=== PATIENT | female | born 1995 | race Caucasian/White ===

== ENCOUNTER 2017-06-26 19:31 | Emergency (ER) | payer OTHER ==
[~2017-06-26] VITALS: Ht 172.7 cm; Wt 142.9 kg
[2017-06-26] MEDS ORDERED: ONDANSETRON 4 MG/2 ML VIAL IM ONE (20:00)
[2017-06-26] MEDS ORDERED: HYDROMORPHONE 1 MG/1 ML DISP.SYRIN IM ONE ×2 (20:00→21:00)
--- NOTE | 2017-06-26 20:15 | NUR ---
pt aaox4, comes in c/o [facility] s/p dental work last week. pt able to speak in clear sentences and able to verbalize needs. pt in no sign of acute distress. family member at bedside
[2017-06-26] MEDS ORDERED: HYDROMORPHONE 1 MG/1 ML DISP.SYRIN ONE ×2 (20:24→21:14)
[2017-06-26] MEDS ORDERED: ONDANSETRON 4 MG/2 ML VIAL ONE (20:25)
--- NOTE | 2017-06-26 20:25 | NUR ---
pt brought down to CT via w/c by tech, consent for waiver signed and given to tech.
--- NOTE | 2017-06-26 20:45 | NUR ---
pt returned from CT via w/c, in bed with no acute distress.
--- NOTE | 2017-06-26 21:35 | NUR ---
Patient is resting comfortably in bed with eyes closed, mother at bed side.
--- NOTE | 2017-06-26 22:46 | NUR ---
Patient discharged to home in stable conditon. Written and verbal after care instructions given with RX. Patient verbalizes understanding of instructions. Pt walked out of ED with steady and stable gait, with mother
[2017-06-26 22:49] VITALS: BP 139/86
== END 2017-06-26 22:54 | disposition home or self-care (01) ==
LOC: ER 19:32
DX: J32.2 Chronic ethmoidal sinusitis (principal); R51 Headache; Z88.0 Allergy status to penicillin; F17.200 Nicotine dependence, unspecified, uncomplicated; Z86.010 Personal history of colon polyps
CPT/HCPCS: 70450; 70486; A4663; J1170; J2405

== ENCOUNTER 2017-07-13 22:25 | Emergency (ER) | payer OTHER ==
[~2017-07-13] VITALS: Ht 172.7 cm; Wt 149.7 kg
[2017-07-13] MEDS ORDERED: predniSONE 50 MG TABLET PO ONE (23:15)
[2017-07-13] MEDS ORDERED: DOXYCYCLINE HYCLATE 100 MG TABLET PO ONE (23:15)
--- NOTE | 2017-07-13 23:29 | NUR ---
Patient discharged to home in stable conditon. Written and verbal after care instructions given. Patient verbalizes understanding of instructions.
[2017-07-13 23:30] VITALS: BP 120/90
[2017-07-13] MEDS ORDERED: DOXYCYCLINE HYCLATE 100 MG TABLET ONE (23:35)
[2017-07-13] MEDS ORDERED: predniSONE 50 MG TABLET ONE (23:36)
== END 2017-07-13 23:22 | disposition home or self-care (01) ==
LOC: ER 22:26
DX: J32.9 Chronic sinusitis, unspecified (principal); Z88.0 Allergy status to penicillin; F17.200 Nicotine dependence, unspecified, uncomplicated
CPT/HCPCS: A4663; J7512

== ENCOUNTER 2017-07-23 16:53 | Emergency (ER) | payer OTHER ==
[~2017-07-23] VITALS: Ht 172.7 cm; Wt 151.5 kg
--- NOTE | 2017-07-23 17:37 | NUR ---
Patient left without being seen by ER physician.
== END 2017-07-23 17:38 | disposition left against medical advice (07) ==
LOC: ER 16:54
DX: Z53.21 Procedure and treatment not carried out due to patient leaving prior to being seen by health care provider (principal)
CPT/HCPCS: A4663

== ENCOUNTER 2017-09-05 19:58 | Emergency (ER) | payer OTHER ==
[~2017-09-05] VITALS: Ht 172.7 cm; Wt 147.4 kg
--- NOTE | 2017-09-05 22:02 | NUR ---
Patient discharged to home in stable conditon. Written and verbal after care instructions given. Patient verbalizes understanding of instructions.
== END 2017-09-05 22:02 | disposition home or self-care (01) ==
LOC: ER 20:03
DX: S93.402A Sprain of unspecified ligament of left ankle, initial encounter (principal); Z88.0 Allergy status to penicillin; W19.XXXA Unspecified fall, initial encounter; Y93.89 Activity, other specified; Y92.89 Other specified places as the place of occurrence of the external cause; Y99.8 Other external cause status
CPT/HCPCS: 73610; 73630; A4663

== ENCOUNTER 2017-10-07 03:19 | Emergency (ER) | payer OTHER ==
[~2017-10-07] VITALS: Ht 172.7 cm; Wt 149.7 kg
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
[2017-10-07] MEDS ORDERED: KETOROLAC TROMETHAMINE 30 MG INJ IM ONE (04:30)
[2017-10-07] MEDS ORDERED: OXYCODONE/APAP 5-325 MG TABLET PO ONE (04:30)
[2017-10-07] MEDS ORDERED: OXYCODONE/APAP 5-325 MG TABLET ONE (04:42)
[2017-10-07] MEDS ORDERED: KETOROLAC TROMETHAMINE 30 MG INJ ONE (04:42)
--- NOTE | 2017-10-07 04:55 | NUR ---
Patient discharged to home in stable conditon. Written and verbal after care instructions given. Patient verbalizes understanding of instructions. Pt took all personal belongings. Pt left accompanied by family member.
[2017-10-07 05:17] VITALS: BP 112/56
== END 2017-10-07 05:18 | disposition home or self-care (01) ==
LOC: ER 03:22
DX: J32.9 Chronic sinusitis, unspecified (principal); F17.210 Nicotine dependence, cigarettes, uncomplicated; Z88.0 Allergy status to penicillin
CPT/HCPCS: A4663; J1885

== ENCOUNTER 2018-03-24 19:16 | Emergency (ER) | payer OTHER ==
[~2018-03-24] VITALS: Ht 172.7 cm; Wt 145.6 kg
--- NOTE | 2018-03-24 19:42 | NUR ---
PT TO ER RM 1B AMBULATORY C/O PAIN ON BOTH LOWER EXTREMITIES, SEVERE ON R LEG RADIATING TO HER HIP SCALE10/10. DR LU WILL SEE PT.
[2018-03-24] MEDS ORDERED: HYDROMORPHONE 2 MG/1 ML DISP.SYRIN ONE (19:57)
[2018-03-24] MEDS ORDERED: ONDANSETRON 4 MG/2 ML VIAL ONE (19:58)
[2018-03-24] MEDS ORDERED: ONDANSETRON 4 MG/2 ML VIAL IM ONE (20:00)
[2018-03-24] MEDS: HYDROMORPHONE 1 MG/1 ML DISP.SYRIN IM ONE ×2 (20:02→20:05)
--- NOTE | 2018-03-24 20:33 | NUR ---
Patient discharged to home in stable conditon via wheelchair. Written and verbal after care instructions given to & to her mother. Patient verbalizes understanding of instructions.
[2018-03-24 20:35] VITALS: BP 130/80
== END 2018-03-24 20:36 | disposition home or self-care (01) ==
LOC: ER 19:17
DX: M25.561 Pain in right knee (principal); F17.200 Nicotine dependence, unspecified, uncomplicated; Z88.0 Allergy status to penicillin
CPT/HCPCS: 73564; 96372 ×2; 99284; J1170; J2405; A4663

== ENCOUNTER 2021-09-22 11:20 | Emergency (ER) | payer BC, OTHER ==
[~2021-09-22] VITALS: Ht 175.3 cm; Wt 140.6 kg
[2021-09-22] MEDS ORDERED: HYDROCODONE/APAP 5-325MG TABLET PO ONE (12:30)
[2021-09-22] MEDS ORDERED: CLINDAMYCIN HCL 150 MG CAPSULE PO ONE (12:30)
[2021-09-22] MEDS ORDERED: TDAP DIPH,PERTUSS,TET VAC/PF 0.5 ML DISP.SYRIN IM ONE ×2 (12:30→12:37)
[2021-09-22] MEDS ORDERED: CLINDAMYCIN HCL 300 MG CAPSULE ONE (12:36)
[2021-09-22] MEDS ORDERED: HYDROCODONE/APAP 5-325MG TABLET ONE (12:38)
[2021-09-22 12:54] LABS: HEMATOCRIT 33.2 % (31.2-41.9); MEAN CORPUSCULAR HEMOGLOBIN 26.1 uug (24.7-32.8); MEAN CORPUSCULAR VOLUME 76.7 fL (75.5-95.3); PLATELET COUNT (AUTO) 191 K/uL (179-408)
[2021-09-22 13:03] LABS: CARBON DIOXIDE 28 mmol/L (21-32); CHLORIDE 100 mmol/L (98-107); CREATININE 0.8 mg/dL (0.6-1.3); GLUCOSE 118 mg/dL (74-106); POTASSIUM 3.9 mmol/L (3.5-5.1); UREA NITROGEN, BLOOD 10 mg/dL (7-18)
[2021-09-22 13:16] LABS: ALANINE AMINOTRANSFERASE 37 U/L (14-59); ALKALINE PHOSPHATASE 105 U/L (50-136); ASPARTATE AMINOTRANSFERASE 19 U/L (15-37); BILIRUBIN,DIRECT 0.1 mg/dL (0.0-0.2); BILIRUBIN,TOTAL 0.3 mg/dL (0.2-1.0); TOTAL PROTEIN, SERUM 7.3 g/dL (6.4-8.2)
[2021-09-22] MEDS ORDERED: CLIN300C3 PO (15:00)
[2021-09-22] MEDS ORDERED: HYDR-3972 PO (15:00)
--- NOTE | 2021-09-22 15:29 | NUR ---
PT WAS EVALUATED BY DR CALLOWAY. PT WAS D/C'd TO HOME. D/C INSTRUCTIONS GIVEN TO THE PT BY DR CALLOWAY.
[2021-09-22 16:00] VITALS: BP 136/84
== END 2021-09-22 16:01 | disposition home or self-care (01) ==
LOC: ER 11:23
DX: L03.114 Cellulitis of left upper limb (principal); I87.2 Venous insufficiency (chronic) (peripheral); R60.0 Localized edema; Z88.0 Allergy status to penicillin; F17.200 Nicotine dependence, unspecified, uncomplicated
CPT/HCPCS: 36415; 83605; 84484; 85025; 85730; 87040; 90715; A4663

== ENCOUNTER 2022-07-05 07:25 | Inpatient (IN) | payer BC, MEDICAID ==
[~2022-07-05] VITALS: Ht 175.3 cm; Wt 140.6 kg
[~2022-07-05 07:25] MED LIST: CLIN300C3 PO; HYDR-3972 PO
[2022-07-05] MEDS ORDERED: MORPHINE SULFATE 2 MG/1 ML DISP.SYRIN IV ONE (08:00)
[2022-07-05] MEDS ORDERED: ONDANSETRON 4 MG/2 ML VIAL IV ONE (08:00)
[2022-07-05] MEDS ORDERED: ACETAMINOPHEN ES 500 MG TABLET PO ONE (08:00)
[2022-07-05] MEDS ORDERED: levoFLOXacin 750 MG/D5W 150 ML PIGGYBACK IV ONE (08:00)
[2022-07-05] MEDS ORDERED: IV NORMAL SALINE 1000 ML BAG IV ONE (08:00)
[2022-07-05] MEDS ORDERED: VANCOMYCIN IV 1,000 MG in IV DEXTROSE 5% 250 ML IV ONE (08:00)
--- NOTE | 2022-07-05 08:01 | NUR ---
"Plan to admit" per Dr Luis. ER registration/admitting staff [facility] notified.
--- NOTE | 2022-07-05 08:03 | NUR ---
U/S Clinked WAS NOTIFIED OF STUDY. SANA
[2022-07-05] MEDS ORDERED: ACETAMINOPHEN ES 500 MG TABLET ONE (08:11)
[2022-07-05] MEDS ORDERED: VANCOMYCIN IV 200 ML ONE (08:11)
[2022-07-05] MEDS ORDERED: ONDANSETRON 4 MG/2 ML VIAL ONE (08:11)
[2022-07-05] MEDS ORDERED: levoFLOXacin 750MG/D5W 150 ML IV ONE (08:12)
[2022-07-05] MEDS ORDERED: MORPHINE SULFATE 4 MG/1 ML DISP.SYRIN ONE (08:12)
[2022-07-05 08:14] LABS: MEAN CORPUSCULAR VOLUME 77.7 fL (75.5-95.3); PLATELET COUNT (AUTO) 145 K/uL (179-408)
[2022-07-05 08:38] LABS: CARBON DIOXIDE 25 mmol/L (21-32); CHLORIDE 99 mmol/L (98-107); CREATININE 1.1 mg/dL (0.6-1.3); GLUCOSE 131 mg/dL (74-106); POTASSIUM 3.4 mmol/L (3.5-5.1); UREA NITROGEN, BLOOD 9 mg/dL (7-18)
[2022-07-05 08:48] LABS: ALANINE AMINOTRANSFERASE 39 U/L (14-59); ALKALINE PHOSPHATASE 96 U/L (50-136); ASPARTATE AMINOTRANSFERASE 32 U/L (15-37); BILIRUBIN,DIRECT 0.2 mg/dL (0.0-0.2); BILIRUBIN,TOTAL 0.4 mg/dL (0.2-1.0); TOTAL PROTEIN, SERUM 7.9 g/dL (6.4-8.2)
[2022-07-05] MEDS ORDERED: LORAZEPAM 2 MG/1 ML VIAL IV ONE (11:00)
[2022-07-05] MEDS ORDERED: LORAZEPAM 2 MG/1 ML VIAL ONE (11:28)
--- NOTE | 2022-07-05 12:44 | NUR ---
2nd reminder to call back for report
--- NOTE | 2022-07-05 14:50 | NUR ---
27 year old female received from er via gurney to room 325 for sepsis.pt is aox4.call light with in reach .vs are stable md notified for the admission orders
[2022-07-05] MEDS ORDERED: ONDANSETRON 4 MG/2 ML VIAL IV PRN (15:00)
[2022-07-05] MEDS ORDERED: POTASSIUM CHLORIDE 10 MEQ TAB.PRT.SR PO ONE (15:00)
[2022-07-05] MEDS ORDERED: REMEDY ESSENTIAL ZINC PASTE 113 GM TP PRN (15:00)
[2022-07-05] MEDS ORDERED: HYDROCODONE/APAP 5-325MG TABLET PO PRN (15:00)
[2022-07-05] MEDS ORDERED: MAGNESIUM HYDROXIDE 30 ML LIQUID UDC PO PRN (15:00)
[2022-07-05 15:25] VITALS: BP 119/62
[2022-07-05] MEDS: ENOXAPARIN SODIUM 40 MG/0.4 ML DISP.SYRIN SQ SCH (15:27)
[2022-07-05] MEDS: IV NS 1000 ML 1,000 ML IV PRN (15:31)
[2022-07-05] MEDS: MORPHINE SULFATE 4 MG/1 ML DISP.SYRIN IV PRN ×2 (16:55→21:01)
--- NOTE | 2022-07-05 20:15 | NUR ---
Received patient in bed, AAO x 4. No SOB, not on any form of distress. IV access on RAC intact and patent with IVF infusing. Rt lower leg red and swollen, screaming d/t pain, elevated leg with pillow.
[2022-07-05] MEDS: VANCOMYCIN IV 2,000 MG in IV DEXTROSE 5% 500 ML IV SCH (20:26)
[2022-07-05] MEDS: DOXYCYCLINE HYCLATE 100 MG TABLET PO SCH (21:59)
[2022-07-06] MEDS: ACETAMINOPHEN 325 MG TABLET PO PRN ×2 (03:42→18:34)
[2022-07-06] MEDS: MORPHINE SULFATE 4 MG/1 ML DISP.SYRIN IV PRN ×4 (03:43→19:27)
[2022-07-06 04:10] VITALS: BP 129/78
[2022-07-06] MEDS: PANTOPRAZOLE SODIUM 40 MG TABLET.DR PO SCH (06:20)
[2022-07-06] MEDS: IV NS 1000 ML 1,000 ML IV PRN ×2 (06:20→09:31)
[2022-07-06 07:24] LABS: HEMATOCRIT 31.8 % (31.2-41.9); MEAN CORPUSCULAR VOLUME 77.2 fL (75.5-95.3); PLATELET COUNT (AUTO) 136 K/uL (179-408)
[2022-07-06 08:16] LABS: CREATININE 0.9 mg/dL (0.6-1.3); MAGNESIUM 1.5 mg/dL (1.8-2.4); PHOSPHOROUS 2.5 mg/dL (2.5-4.9); POTASSIUM 3.4 mmol/L (3.5-5.1)
[2022-07-06] MEDS: DOXYCYCLINE HYCLATE 100 MG TABLET PO SCH ×2 (09:31→21:25)
[2022-07-06] MEDS: VANCOMYCIN IV 2,000 MG in IV DEXTROSE 5% 500 ML IV SCH (09:31)
[2022-07-06] MEDS: ENOXAPARIN SODIUM 40 MG/0.4 ML DISP.SYRIN SQ SCH (09:33)
[2022-07-06] MEDS: levoFLOXacin 750MG/D5W 750 MG in PREMIXED 1 EACH IV SCH (09:35)
[2022-07-06] MEDS: MAGNESIUM SULFATE/D5W 100 ML IV SCH ×2 (10:30→11:30)
[2022-07-06] MEDS ORDERED: POTASSIUM CHLORIDE 20 MEQ TAB.PRT.SR PO ONE (10:30)
[2022-07-06 12:00] VITALS: BP 124/70
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
[2022-07-06 16:58] VITALS: BP 108/64
[2022-07-06 20:00] VITALS: BP 107/61
[2022-07-06] MEDS: CLINDAMYCIN PHOSPHATE IV 900 MG in IV DEXTROSE 5% 44 ML IV SCH (21:25)
[2022-07-06] MEDS ORDERED: CLINDAMYCIN PHOSPHATE IV 900 MG in IV DEXTROSE 5% 100 ML IV SCH (22:00)
[2022-07-07] VITALS: BP 117/72
[2022-07-07 04:00] VITALS: BP 125/64
[2022-07-07] MEDS: CLINDAMYCIN PHOSPHATE IV 900 MG in IV DEXTROSE 5% 44 ML IV SCH (06:11)
[2022-07-07] MEDS: PANTOPRAZOLE SODIUM 40 MG TABLET.DR PO SCH (06:11)
[2022-07-07] MEDS: levoFLOXacin 750MG/D5W 750 MG in PREMIXED 1 EACH IV SCH (10:00)
[2022-07-07] MEDS: DOXYCYCLINE HYCLATE 100 MG TABLET PO SCH ×2 (10:01→21:00)
[2022-07-07] MEDS: ENOXAPARIN SODIUM 40 MG/0.4 ML DISP.SYRIN SQ SCH (10:04)
[2022-07-07 10:07] LABS: HEMATOCRIT 34.5 % (31.2-41.9); MEAN CORPUSCULAR HEMOGLOBIN 25.7 uug (24.7-32.8); MEAN CORPUSCULAR VOLUME 77.6 fL (75.5-95.3); PLATELET COUNT (AUTO) 163 K/uL (179-408)
[2022-07-07 10:17] LABS: CREATININE 0.8 mg/dL (0.6-1.3); MAGNESIUM 2.1 mg/dL (1.8-2.4); POTASSIUM 3.6 mmol/L (3.5-5.1)
[2022-07-07] MEDS ORDERED: SWABABLE VALVE TRANSFER SET EA MC ONE (10:49)
[2022-07-07] MEDS ORDERED: IV NORMAL SALINE 250 ML IV ONE (10:49)
[2022-07-07] MEDS ORDERED: IOHEXOL 300MG/ML 100 ML INFUS..BTL ONE (10:49)
--- NOTE | 2022-07-07 11:38 | NUR ---
WAITING FOR MIDLINE TO BE INSTALLED TO PERFORM CT LOWER EXTREMITY W/
[2022-07-07] MEDS: CLINDAMYCIN PHOSPHATE IV 900 MG in IV DEXTROSE 5% 50 ML IV SCH ×2 (15:10→21:38)
[2022-07-07 16:00] VITALS: BP 126/74
--- NOTE | 2022-07-07 17:13 | NUR ---
Rcvd pt in bed with family at bedside. No SOB at this time. Denies any pain but c/c of nausea but refuse to have zofran. Pt.l refused to have vital signs checked too. Pt. received Levaquin and Clindamycin IV. Pt. tolerated it well. Midline #18 upper arm on the left side. Awaiting of CT Scan of right lower extremity with contrast.
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
[2022-07-07 20:00] VITALS: BP 126/75
[2022-07-07] MEDS ORDERED: HYDROMORPHONE 1 MG/1 ML DISP.SYRIN IV PRN (23:45)
--- NOTE | 2022-07-08 01:44 | NUR ---
Patient awake,alert, and oriented x4. Patient in no acute distress. Patient to CT via bed. Right lower extremity red and swollen. NS infusing at 75cc per hour into left arm .Medicated fo pain as needed. Patient woke up crying because no family member was at her bedside. Will continue to monitor.
[2022-07-08 04:00] VITALS: BP 129/80
[2022-07-08] MEDS: CLINDAMYCIN PHOSPHATE IV 900 MG in IV DEXTROSE 5% 50 ML IV SCH (05:24)
[2022-07-08] MEDS: PANTOPRAZOLE SODIUM 40 MG TABLET.DR PO SCH (05:24)
[2022-07-08 07:16] LABS: HEMATOCRIT 32.7 % (31.2-41.9); MEAN CORPUSCULAR HEMOGLOBIN 25.7 uug (24.7-32.8); MEAN CORPUSCULAR VOLUME 77.2 fL (75.5-95.3); PLATELET COUNT (AUTO) 180 K/uL (179-408)
[2022-07-08 07:33] LABS: CREATININE 0.8 mg/dL (0.6-1.3); MAGNESIUM 2.1 mg/dL (1.8-2.4); PHOSPHOROUS 4.3 mg/dL (2.5-4.9); POTASSIUM 3.4 mmol/L (3.5-5.1)
[2022-07-08] MEDS ORDERED: ENSURE ENLIVE (VAN) 240 ML LIQUID PO SCH (09:00)
[2022-07-08] MEDS: DOXYCYCLINE HYCLATE 100 MG TABLET PO SCH (10:03)
[2022-07-08] MEDS: levoFLOXacin 750MG/D5W 750 MG in PREMIXED 1 EACH IV SCH (10:03)
[2022-07-08] MEDS: ENOXAPARIN SODIUM 40 MG/0.4 ML DISP.SYRIN SQ SCH (10:05)
[2022-07-08] MEDS ORDERED: POTASSIUM CHLORIDE 20 MEQ TAB.PRT.SR PO ONE (10:30)
[2022-07-08] MEDS ORDERED: SULF1TAB48 PO (12:04)
[2022-07-08] MEDS ORDERED: LEVO750T46 PO (12:04)
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
[2022-07-09] MEDS ORDERED: levoFLOXacin 750 MG TABLET PO SCH (09:00)
== END 2022-07-08 11:15 | disposition left against medical advice (07) | DRG 720 ==
LOC: ER 07:25 → MEDSURG3 13:52
PROVIDERS: ADMIT Nurse Practitioner Family; ATTEND Nurse Practitioner Family
PROC: B547ZZA Ultrasonography of Left Subclavian Vein, Guidance (ICD-10-PCS; principal; 2022-07-07)
PROC: 05H633Z Insertion of Infusion Device into Left Subclavian Vein, Percutaneous Approach (ICD-10-PCS; principal; 2022-07-07)
DX: A41.9 Sepsis, unspecified organism (principal); D69.6 Thrombocytopenia, unspecified; E87.1 Hypo-osmolality and hyponatremia; L03.115 Cellulitis of right lower limb; E66.01 Morbid (severe) obesity due to excess calories; Z68.42 Body mass index [BMI] 45.0-49.9, adult; E87.6 Hypokalemia; F17.210 Nicotine dependence, cigarettes, uncomplicated; Z20.822 Contact with and (suspected) exposure to COVID-19; R73.9 Hyperglycemia, unspecified; Z88.0 Allergy status to penicillin
CPT/HCPCS: 36415; 71045; 83605; 83735; 84100; 84484; 85025; 85651; 85730; 86140; 87040; 93005; A4663; A9150; G0378; J1170; J1650; J1956; J2060; J2270; J2405; J3370; J3475; J3490; J7040; J7060; Q9967

== ENCOUNTER 2025-01-08 09:18 | Emergency (ER) | payer MEDICAID, OTHER ==
[~2025-01-08] VITALS: Ht 175.3 cm; Wt 140.6 kg
[~2025-01-08 09:18] MED LIST changes: -CLIN300C3 PO; -HYDR-3972 PO; +LEVO750T46 PO; +SULF1TAB48 PO
[2025-01-08 10:12] LABS: PLATELET COUNT (AUTO) 225 K/uL (179-408); RED BLOOD CELL COUNT(AUTO) 4.61 MIL/uL (3.63-4.92); RED CELL DISTRIBUTION WIDTH 16.8 % (12.3-17.7); WHITE BLOOD COUNT (AUTO) 6.9 K/uL (3.8-11.8)
[2025-01-08 10:18] LABS: CREATININE 0.9 mg/dL (0.6-1.3); SODIUM SERUM 136.0 mmol/L (136-145); UREA NITROGEN, BLOOD 15.0 mg/dL (7-18)
[2025-01-08 10:24] LABS: ASPARTATE AMINOTRANSFERASE 17.0 U/L (15-37); TOTAL PROTEIN, SERUM 8.4 g/dL (6.4-8.2)
[2025-01-08] MEDS ORDERED: SILVER SULFADIAZINE 1% CREAM 50 GM TP ONE (11:03)
[2025-01-08] MEDS: SILVER SULFADIAZINE 1% CREAM 50 GM TP ONE (11:21)
[2025-01-08] MEDS ORDERED: SILV50CR32 TP (11:30)
[2025-01-08 11:37] VITALS: BP 130/74; O2SAT 98
== END 2025-01-08 12:06 | disposition home or self-care (01) ==
LOC: ER 09:18
DX: I83.009 Varicose veins of unspecified lower extremity with ulcer of unspecified site (principal); E46 Unspecified protein-calorie malnutrition; E83.51 Hypocalcemia; E88.810 Metabolic syndrome; F17.200 Nicotine dependence, unspecified, uncomplicated; I87.2 Venous insufficiency (chronic) (peripheral); Z88.0 Allergy status to penicillin; Z87.09 Personal history of other diseases of the respiratory system; Z87.2 Personal history of diseases of the skin and subcutaneous tissue; Z68.42 Body mass index [BMI] 45.0-49.9, adult
CPT/HCPCS: 36415; 85025; A4606; A4663

== ENCOUNTER 2025-05-26 15:29 | Inpatient (IN) | payer OTHER ==
[~2025-05-26] VITALS: Ht 172.7 cm; Wt 114.9 kg
[~2025-05-26 15:29] MED LIST changes: -LEVO750T46 PO; +SILV50CR32 TP; +[UNRECOGNIZED DRUG - CODE] PO
[2025-05-26] MEDS ORDERED: VANCOMYCIN IV 200 ML ONE ×2 (15:58→20:40)
[2025-05-26] MEDS: IV NORMAL SALINE 1000 ML BAG IV ONE (16:00)
[2025-05-26] MEDS: VANCOMYCIN IV 1,000 MG in IV DEXTROSE 5% 250 ML IV ONE ×2 (16:08→22:39)
[2025-05-26 16:10] LABS: PLATELET COUNT (AUTO) 194 K/uL (179-408); RED BLOOD CELL COUNT(AUTO) 4.63 MIL/uL (3.63-4.92); RED CELL DISTRIBUTION WIDTH 16.2 % (12.3-17.7); WHITE BLOOD COUNT (AUTO) 10.1 K/uL (3.8-11.8)
[2025-05-26 16:18] LABS: CREATININE 1.0 mg/dL (0.6-1.3); SODIUM SERUM 134 mmol/L (136-145); UREA NITROGEN, BLOOD 7 mg/dL (7-18)
[2025-05-26 16:23] LABS: ASPARTATE AMINOTRANSFERASE 47 U/L (15-37); TOTAL PROTEIN, SERUM 8.8 g/dL (6.4-8.2)
[2025-05-26 16:30] LABS: LACTIC ACID 2.0 mmol/L (0.4-2.0)
[2025-05-26] MEDS ORDERED: ACETAMINOPHEN 500 MG TABLET ONE (18:16)
[2025-05-26] MEDS: ACETAMINOPHEN 500 MG TABLET PO ONE (18:17)
[2025-05-26] MEDS ORDERED: ONDANSETRON 4 MG/2 ML VIAL IV PRN (19:00)
[2025-05-26] MEDS ORDERED: MAGNESIUM HYDROXIDE 30 ML LIQUID UDC PO PRN (19:00)
[2025-05-26] MEDS: ENOXAPARIN SODIUM 40 MG/0.4 ML DISP.SYRIN SQ SCH (19:00)
[2025-05-26] MEDS ORDERED: PIPERACILLIN SODIUM/TAZOBACTAM 4.5 G in IV DEXTROSE 5% 50 ML IV SCH (19:00)
[2025-05-26] MEDS ORDERED: REMEDY ESSENTIAL ZINC PASTE 113 GM TP PRN (19:00)
[2025-05-26 19:03] VITALS: BP 107/63
[2025-05-26 19:10] VITALS: BP 103/40; TEMP 98.7; O2SAT 96
[2025-05-26] MEDS: PIPERACILLIN SODIUM/TAZOBACTAM 3.375 G in IV DEXTROSE 5% 50 ML IV SCH (19:50)
[2025-05-26 20:20] VITALS: BP 103/40; TEMP 98.4; O2SAT 96
[2025-05-26] MEDS ORDERED: PIPERACILLIN/TAZOBACTAM/D5W 50 ML IV ONE (20:39)
[2025-05-26] MEDS: IV 1/2NS 1000 ML 1,000 ML IV PRN (21:14)
[2025-05-27] MEDS: ACETAMINOPHEN 325 MG TABLET PO PRN (01:32)
[2025-05-27] MEDS: HYDROCODONE/APAP 5-325MG TABLET PO PRN (02:12)
[2025-05-27] MEDS: PIPERACILLIN SODIUM/TAZOBACTAM 3.375 G in IV DEXTROSE 5% 50 ML IV SCH (04:06)
[2025-05-27] MEDS ORDERED: CEFEPIME HCL 2 GM in IV DEXTROSE 5% 100 ML IV SCH (10:00)
[2025-05-27] MEDS ORDERED: PIPERACILLIN SODIUM/TAZOBACTAM 3.375 G in IV DEXTROSE 5% 50 ML IV SCH (10:00)
[2025-05-27] MEDS ORDERED: VANCOMYCIN HCL 1,500 MG in IV DEXTROSE 5% 500 ML IV SCH (12:00)
[2025-05-27] MEDS ORDERED: ENOXAPARIN SODIUM 40 MG/0.4 ML DISP.SYRIN SQ SCH (21:00)
== END 2025-05-27 09:30 | disposition left against medical advice (07) | DRG 383 ==
LOC: ER 15:45 → MEDSURG3 19:44
PROVIDERS: ADMIT Internal Medicine; ATTEND Nurse Practitioner Family
DX: L03.115 Cellulitis of right lower limb (principal); E87.20 Acidosis, unspecified; E44.1 Mild protein-calorie malnutrition; E87.1 Hypo-osmolality and hyponatremia; L03.116 Cellulitis of left lower limb; E66.9 Obesity, unspecified; E88.09 Other disorders of plasma-protein metabolism, not elsewhere classified; Z68.38 Body mass index [BMI] 38.0-38.9, adult; Z88.0 Allergy status to penicillin; F17.210 Nicotine dependence, cigarettes, uncomplicated; E87.6 Hypokalemia; R73.9 Hyperglycemia, unspecified; Z53.29 Procedure and treatment not carried out because of patient's decision for other reasons; I87.323 Chronic venous hypertension (idiopathic) with inflammation of bilateral lower extremity
CPT/HCPCS: 36415; 71045; 83605; 84484; 85025; 85730; 87040; A4606; A4663; A9150; G0378; J0692; J0696; J1650; J2543; J3373; J3374; J7040; J7050; J7060